=== PATIENT | male | born 1950 | race Caucasian/White ===

== ENCOUNTER → 2023-09-11 | Outpatient (CLI) | payer OTHER ==
[~2023-09-11] MED LIST: IOHEXOL-350 75 ML VIAL IV ONE
== END | disposition home or self-care (01) ==
LOC: RAH 09:46
PROVIDERS: ATTEND Internal Medicine Gastroenterology
DX: I89.8 Other specified noninfective disorders of lymphatic vessels and lymph nodes (principal); R93.3 Abnormal findings on diagnostic imaging of other parts of digestive tract
CPT/HCPCS: 74170; Q9967

== ENCOUNTER → 2024-04-06 | Outpatient (CLI) | payer OTHER | END | disposition home or self-care (01) | LOC: LAB 10:17 | PROVIDERS: ATTEND Internal Medicine | DX: R93.3 Abnormal findings on diagnostic imaging of other parts of digestive tract (principal) | CPT/HCPCS: 36415; 82565; 84520 ==

== ENCOUNTER → 2024-04-11 | Outpatient (CLI) | payer OTHER ==
[~2024-04-11] MED LIST changes: +IOHEXOL 350 MG/ML 100ML INFUS..BTL IV ONE; -IOHEXOL-350 75 ML VIAL IV ONE
== END | disposition home or self-care (01) ==
LOC: RAH 08:37
PROVIDERS: ATTEND Internal Medicine
DX: D21.4 Benign neoplasm of connective and other soft tissue of abdomen (principal); R93.3 Abnormal findings on diagnostic imaging of other parts of digestive tract
CPT/HCPCS: 74170; Q9967

== ENCOUNTER → 2024-11-28 | Outpatient (CLI) | payer OTHER ==
--- NOTE | 2024-11-29 13:16 | HMCIMG ---
NM BONE SCAN WHOLE BODY REASON: MALIGNANT NEOPLASM OF THE PROSTATE COMPARISON: None TECHNIQUE: Routine imaging protocol was performed following administration of 24.5 mCi technetium 99 MDP IV in the right hand. FINDINGS: There is a single focus of increased uptake in the right calvarium, low right frontal region is nonspecific, plain radiographic correlation recommended for further evaluation. Osseous uptake is otherwise unremarkable. There are no other focal lesions. Soft tissues appear unremarkable. IMPRESSION: 1. Focal area of abnormal uptake and the right frontal calvarium, plain radiographic correlation recommended. 2. Otherwise negative scan.
== END | disposition home or self-care (01) ==
LOC: RAH 13:26
PROVIDERS: ATTEND Urology
DX: C61 Malignant neoplasm of prostate (principal)
CPT/HCPCS: 78306; A9503